=== PATIENT | female | born 1950 | race Caucasian/White ===

== ENCOUNTER → 2017-01-15 | Outpatient (CLI) | payer OTHER ==
[2012-11-05 12:02] VITALS: BP 140/69
[2017-01-15 15:24] LABS: CREATININE 0.83 mg/dL (0.55-1.02)
--- NOTE | 2017-01-15 17:05 | MRI ---
MRI lumbar spine with contrast Indication: Lower back pain Technique: Multi sequence, multiplanar MR images of the lumbar spine were obtained without contrast. Comparison: MRI May 01, 2012 Findings: Bone marrow signal, and lumbar spine vertebral body heights flash alignment appear normal. No acute fracture , subluxation suspicious osseous lesion is identified. Posterior fusion hardware spanning L5-S1 is again noted. The imaged paraspinal soft tissues demonstrate no gross abnormality. No abnormal enhancement is seen postcontrast administration. T11-T12: Mild disc desiccation/narrowing and small left paracentral disc bulge results in stable mil d effacement of the ventral thecal sac. No significant foraminal narrowing is seen. T12-L1: Mild disc desiccation/narrowing and mild paracentral disc bulge without significant canal or foraminal stenosis. L1-L2: Mild disc desiccation/narrowing and mild broad-based disc bulge results in mild bilateral for aminal narrowing, greater on the left without appreciable canal stenosis. L2-L3: Mild disk desiccation and mild broad-based disc bulge without significant canal or foraminal stenosis. L3-L4: Mild disk desiccation, small broad-based disc bulge and facet arthropathy without significant canal or foraminal stenosis. L4-L5: Mild broad-based disk bulge and facet arthropathy results in mild bilateral foraminal narrowi ng without significant canal stenosis. L5-S1: There is posterior fusion at this level with partial osseous bridging of the L5-S1 vertebral bodies. No definite high-grade canal or foraminal narrowing is appreciated, given adjacent susceptib ility artifact. Impression: Mild multilevel degenerative changes of the lumbar spine, appearing minimally progressed as detailed above. No high-grade canal or foraminal stenosis is identified at any level. Reported By:
== END | disposition home or self-care (01) | DRG 552 ==
LOC: RAD 14:46
PROVIDERS: ATTEND Nurse Practitioner Family
DX: M54.5 Low back pain (principal); M54.17 Radiculopathy, lumbosacral region; M62.830 Muscle spasm of back; Z98.1 Arthrodesis status
CPT/HCPCS: 36415; 72149; 82565; 84520